=== PATIENT | male | born 1990 | race Caucasian/White ===

== ENCOUNTER 2018-03-22 12:42 | Inpatient (IN) | payer OTHER ==
[2018-03-22 13:29] LABS: HEMATOCRIT 44.9 % (42.0-52.0); HEMOGLOBIN 14.7 g/dl (13.5-17.5); MEAN CORPUSCULAR HEMOGLOBIN 30.6 pg (27.0-33.0); MEAN CORPUSCULAR HGB CONC 32.7 g/dl (32.0-36.5); MEAN CORPUSCULAR VOLUME 93.3 fl (80.0-96.0); PLATELET COUNT, AUTOMATED 277 10^3/uL (150-450); RED BLOOD COUNT 4.81 10^6/uL (4.30-6.10); RED CELL DISTRIBUTION WIDTH 11.9 % (11.5-14.5); WHITE BLOOD COUNT 4.3 10^3/uL (4.0-10.0)
[2018-03-22 13:52] LABS: ACETAMINOPHEN LEVEL < 2.0 UG/ML (10.0-30.0); ALBUMIN 4.8 GM/DL (3.2-5.2); ALBUMIN/GLOBULIN RATIO 1.71 (1.00-1.93); ALKALINE PHOSPHATASE 62 U/L (45-117); ALT/SGPT 23 U/L (12-78); ANION GAP 9 MEQ/L (8-16); AST/SGOT 20 U/L (7-37); BILIRUBIN,DIRECT 0.3 MG/DL (0.0-0.2); BLOOD UREA NITROGEN 21 MG/DL (7-18); CALCIUM LEVEL 9.5 MG/DL (8.5-10.1); CARBON DIOXIDE LEVEL 30 MEQ/L (21-32); CHLORIDE LEVEL 103 MEQ/L (98-107); CREATININE FOR GFR 0.87 MG/DL (0.70-1.30); ETHYL ALCOHOL (ETHANOL) 0.003 % (0.000-0.010); GLOMERULAR FILTRATION RATE > 60.0 (>60); GLUCOSE, FASTING 69 MG/DL (70-100); POTASSIUM SERUM 4.1 MEQ/L (3.5-5.1); SALICYLATE LEVEL < 1.7 MG/DL (5.0-30.0); SODIUM LEVEL 142 MEQ/L (136-145); THYROID STIMULATING HORMONE 0.568 uIU/ML (0.358-3.740); TOTAL PROTEIN 7.6 GM/DL (6.4-8.2)
[2018-03-22 15:51] LABS: AMPHETAMINES LEVEL URINE NEGATIVE (NEGATIVE); BARBITURATES URINE NEGATIVE (NEGATIVE); BENZODIAZEPINES URINE NEGATIVE (NEGATIVE); CANNABINOIDS URINE NEGATIVE (NEGATIVE); COCAINE METABOLITE URINE NEGATIVE (NEGATIVE); METHADONE URINE NEGATIVE (NEGATIVE); OPIATES URINE NEGATIVE (NEGATIVE); PHENCYCLIDINE URINE NEGATIVE (NEGATIVE)
[2018-03-22] MEDS ORDERED: LORazepam 1 MG TAB PO (16:30)
[2018-03-22] MEDS ORDERED: MOM 30ML SUSPENSION UDC PO (16:30)
[2018-03-22] MEDS ORDERED: MAALOX 30 ML SUSP *UDC PO (16:30)
[2018-03-22] MEDS ORDERED: ACETAMINOPHEN TAB 650MG DOSE (2X325MG) PO (16:30)
[2018-03-22] MEDS: NICOTINE 21MG/24HR 1 EA TRANSDERMAL TD (21:05)
[2018-03-23] MEDS: PARoxetine 10MG TABLET PO (11:30)
[2018-03-23] MEDS: NICOTINE 21MG/24HR 1 EA TRANSDERMAL TD (13:59)
[2018-03-23] MEDS: traZODone 50 MG TAB PO (20:53)
[2018-03-24] MEDS: PARoxetine 10MG TABLET PO (10:46)
[2018-03-24] MEDS: NICOTINE 21MG/24HR 1 EA TRANSDERMAL TD (10:46)
[2018-03-24] MEDS: traZODone 50 MG TAB PO (22:43)
[2018-03-25] MEDS: NICOTINE 21MG/24HR 1 EA TRANSDERMAL TD (09:17)
[2018-03-25] MEDS: PARoxetine 10MG TABLET PO (09:17)
[2018-03-25] MEDS: traZODone 100 MG TAB PO (21:42)
[2018-03-26] MEDS: NICOTINE 21MG/24HR 1 EA TRANSDERMAL TD (09:30)
[2018-03-26] MEDS: PARoxetine 20 MG TAB PO (09:30)
[2018-03-26] MEDS: traZODone 100 MG TAB PO (21:33)
[2018-03-27] MEDS: PARoxetine 20 MG TAB PO (09:34)
[2018-03-27] MEDS: NICOTINE 21MG/24HR 1 EA TRANSDERMAL TD (09:35)
[2018-03-27] MEDS: traZODone 100 MG TAB PO (23:08)
[2018-03-28] MEDS: PARoxetine 20 MG TAB PO (08:43)
[2018-03-28] MEDS: NICOTINE 21MG/24HR 1 EA TRANSDERMAL TD (08:43)
== END 2018-03-28 09:10 | disposition home or self-care (01) | DRG 885 ==
LOC: M ED 12:42 → M ED INP 16:29 → M PSY 17:45
PROVIDERS: Psychiatry & Neurology Psychiatry
DX: F33.9 Major depressive disorder, recurrent, unspecified (principal); F41.9 Anxiety disorder, unspecified; Z88.0 Allergy status to penicillin; Z88.8 Allergy status to other drugs, medicaments and biological substances; F17.220 Nicotine dependence, chewing tobacco, uncomplicated